=== PATIENT | female | born 1965 | race Asian ===

== ENCOUNTER 2023-05-12 17:28 | Emergency (ER) | payer SELFPAY ==
[2023-05-12] MEDS ORDERED: Ondansetron PF 4 MG/2 ML Vial ONE (17:52)
[2023-05-12] MEDS ORDERED: Morphine 4 MG/ML VIAL ONE (17:52)
[2023-05-12 18:39] LABS: #Basophils 0.1 10x3/uL (0.0-0.2); #Eosinphils 0.4 10x3/uL (0.0-0.5); #Monocytes 0.5 10x3/uL (0.0-1.1); #Neutrophils 7.8 10x3/uL (1.5-8.4); %Basophils 0.5 % (0.0-2.0); %Monocytes 4.8 % (0.0-10.0); %Neutrophils 73.3 % (40.0-75.0); Hemoglobin 11.7 g/dL (12.0-15.5); Mean Corpuscular Hemoglobin 19.5 pg (27.0-33.0); Mean Corpuscular Volume 64.9 fl (81.6-98.3); Platelet Count 70 10x3/uL (150-450); RBC Distribution Width 20.9 % (11.5-14.5); Red Blood Cell (RBC) Count 6.01 10x6/uL (3.90-5.03); White Blood Cell (WBC) Count 10.6 10x3/uL (3.5-10.5)
[2023-05-12 18:51] LABS: ALT (SGPT) 16 U/L (8-55); AST (SGOT) 18 U/L (5-34); Albumin 4.5 g/dL (3.5-5.0); Alkaline Phosphatase 130 U/L (40-110); Anion Gap 15 mmol/L (10-20); BUN (Urea Nitrogen) 12 mg/dL (9.8-20.1); Bilirubin, Total 0.4 mg/dL (0.2-1.2); Calc. Creatinine Clearance 0 mL/min (70-130); Calcium 9.3 mg/dL (7.8-10.44); Carbon Dioxide 22 mmol/L (22-29); Chloride 106 mmol/L (98-107); Estimated GFR 81; Globulin 3.4 g/dL (2.4-3.5); Glucose 128 mg/dL (70-105); Lipase 27 U/L (8-78); Potassium 4.1 mmol/L (3.5-5.1); Protein, Total 7.9 g/dL (6.0-8.3); Sodium 139 mmol/L (136-145)
[2023-05-12 19:13] LABS: Anisocytosis MODERATE=16-30 cells (100X) (0-5/hpf); Microcytosis MARKED = >30 cells (100X) (0-5/hpf)
[2023-05-12 19:15] LABS: Hypochromia SLIGHT = 6-15 cells (100X) (0-5/hpf); Platelet Clumps MODERATE
[2023-05-12 19:17] LABS: Platelet Adequacy Comment PLT clumps seen-ADEQ
== END 2023-05-12 19:46 | disposition home or self-care (01) ==
LOC: CSHERS 17:28
DX: R10.13 Epigastric pain (principal); R11.2 Nausea with vomiting, unspecified
CPT/HCPCS: 36415; 71045; 76705; 80053; 83690; 85025; 93005; 96361; 96374; 96375; J2270; J2405